=== PATIENT | male | born 1980 | race Two or more races ===

== ENCOUNTER 2024-10-18 19:17 | Emergency (ER) | payer SELFPAY ==
[~2024-10-18] VITALS: Ht 165.1 cm; Wt 61.4 kg
[2024-10-18 19:52] VITALS: BP 150/85; PULSE 120; RESP 20; TEMP 98.9; O2SAT 99
[2024-10-18] MEDS ORDERED: DIPH-1243 PO (19:57)
== END 2024-10-18 21:40 | disposition left against medical advice (07) ==
LOC: EMS 19:17
DX: N48.89 Other specified disorders of penis (principal); Z53.21 Procedure and treatment not carried out due to patient leaving prior to being seen by health care provider